=== PATIENT | female | born 1935 | race Caucasian/White ===

== ENCOUNTER 2018-09-12 20:53 | Inpatient (IN) | payer MEDICARE ==
[~2018-09-12] VITALS: Ht 157.5 cm; Wt 50.4 kg
--- OUTSIDE RECORDS SUMMARY | 2018-09-12 20:55 | XMS REPORT ---
Author Author [facility] Address Unknown Phone Unavailable Care Team Providers Care Cocktail Lounge Manager Name Role Phone Unavailable Unavailable Problems This patient has no known problems. Allergies, Adverse Reactions, Alerts This patient has no known allergies or adverse reactions. Medications This patient has no known medications. Encounters Start Date/Time End Date/Time Encounter Type Admission Type Attending Clinicians [facility] Care Department Encounter ID 2018-07-16 21:53:00 2018-07-16 21:53:00 Emergency E [facility] [id number]
--- OUTSIDE RECORDS SUMMARY | 2018-09-12 20:55 | XMS REPORT | Clinical Summary ---
Author Author [facility] Address Unknown Phone Unavailable Care Team Providers Care Supervisor General Name Role Phone Jair Dubon MD PCP Allergies Not on File Medications Not on file Active Problems Not on file Social History Date Tobacco Use Types Packs/Day Years Used Never Assessed Sex Assigned at Date Recorded Not on file Industry Job Start Date Occupation Not on file Not on file Not on file Travel End Travel History Travel Start No recent travel history available. Last Filed Vital Signs Not on file Plan of Treatment Health Maintenance Due Date Last Done Comments SHINGLES VACCINES (#1) 1985 65+ PNEUMOCOCCAL VACCINE 02/22/2000 (1 of 2 - PCV13) INFLUENZA VACCINE 10/11/2018 Results Not on fileafter 09/11/2017 Insurance Type Payer Benefit Subscriber ID Effective Phone Address Plan / Dates Group Commercial [employer] xxxxxxxxxx 2007-P M[employer]UAL resent Medicare MEDICARE MEDICARE xxxxxxxxxx 2000- [place], PART A AND Present [place] Advance Directives Patient has advance care planning documents on file. For more information, jennifer mccoy contact: Kody Radford [address] [place] [address]
[2018-09-12] MEDS ORDERED: SODIUM CHLORIDE 0.9% 1000ML 1,000 ML IV STA (21:00)
[2018-09-12] MEDS ORDERED: NAMENDA5 MG PO (21:03)
[2018-09-12] MEDS ORDERED: DONEPEZIL HCL10 MG PO (21:03)
[2018-09-12] MEDS ORDERED: LOSARTAN POTASS50 MG PO (21:03)
[2018-09-12] MEDS ORDERED: LOPRESSOR25 MG PO (21:03)
[2018-09-12] MEDS ORDERED: ONE DAILY FOR1 EACH PO (21:03)
[2018-09-12] MEDS ORDERED: PRAVASTATIN SOD40 MG PO (21:03)
[2018-09-12 21:28] LABS: BASOPHILS # (AUTO) 0.1 (0.0-0.1); BASOPHILS % 0.3 % (0.0-1.0); EOSINOPHILS # (AUTO) 0.1 (0.0-0.4); EOSINOPHILS % 0.7 % (0.0-6.0); HEMATOCRIT 39.5 % (34.2-44.1); HEMOGLOBIN 12.7 g/dL (12.0-16.0); LYMPHOCYTES # (AUTO) 1.3 (1.0-3.2); LYMPHOCYTES % 8.7 % (18.0-39.1); MEAN CORPUSCULAR HGB CONC 32.2 g/dL (31-35); MEAN CORPUSCULAR VOLUME 93.2 fL (81-99); MONOCYTES # (AUTO) 1.1 (0.2-0.8); MONOCYTES % 7.3 % (4.4-11.3); NEUTROPHILS # (AUTO) 12.1 (2.1-6.9); NEUTROPHILS % 82.6 % (38.7-80.0); PLATELET COUNT 374 x10e3/uL (140-360); RED BLOOD COUNT 4.24 x10e6/uL (3.6-5.1); RED CELL DISTRIBUTION WIDTH 14.1 % (11.7-14.4)
[2018-09-12 21:51] LABS: BILIRUBIN,URINE NEGATIVE (NEGATIVE); CLARITY,URINE CLEAR (CLEAR); COLOR,URINE YELLOW (YELLOW); KETONES,URINE NEGATIVE (NEGATIVE); LEUKOCYTE ESTERASE ,URINE NEGATIVE (NEGATIVE); NITRITE,URINE NEGATIVE (NEGATIVE); PROTEIN,URINE DIPSTICK TRACE (NEGATIVE); URINE UROBILINOGEN 0.2 mg/dL (0.2 - 1)
--- NOTE | 2018-09-12 21:53 | Diagnostic Imaging Report ---
EXAMINATION: CHEST SINGLE (PORTABLE) INDICATION: Elevated WBC COMPARISON: None FINDINGS: AP view TUBES and LINES: None. LUNGS: Lungs are hyper inflated. Bilateral peribronchial cuffing. Focal airspace opacity in the right upper lobe. PLEURA: No pleural effusion or pneumothorax. HEART AND MEDIASTINUM: The cardiomediastinal silhouette is unremarkable. There are atherosclerotic calcifications within the aorta. BONES AND SOFT TISSUES: No acute osseous lesion. Soft tissues are unremarkable. UPPER ABDOMEN: No free air under the diaphragm. IMPRESSION: Right upper lobe pneumonia. Signed by: Dr. Williams Anthony M.D. on 09/12/2018 9:50 PM
[2018-09-12 21:55] LABS: ALBUMIN 2.7 g/dL (3.5-5.0); ALBUMIN/GLOBULIN RATIO 0.6 (0.8-2.0); ANION GAP 17.3 mmol/L (8-16); CREATININE, SERUM 0.91 mg/dL (0.57-1.11); POTASSIUM 4.3 mmol/L (3.5-5.1)
[2018-09-12 22:01] LABS: CREATINE KINASE MB 5.6 ng/mL (0-5.0)
--- NOTE | 2018-09-12 22:09 | Diagnostic Imaging Report ---
History:AMS Comparison studies:None Technique: Axial images were obtained from the skull base to the vertex. Coronal and sagittal images reconstructed from the axial data. Intravenous contrast: None Dose modulation, iterative reconstruction, and/or weight based adjustment of the mA/kV was utilized to reduce the radiation dose to as low as reasonably achievable. Findings: Scalp/skull: No abnormalities. Extra-axial spaces: No masses. No fluid collections. Brain sulci: Severely prominent at the frontal temporal and parietal convexities. Ventricles: Moderate compensatory dilatation. Severe dilation of the left temporal horn. No hydrocephalus. Parenchyma: Few hypodensities in the supratentorial white matter are small vessel ischemic changes. No masses, hemorrhage, acute or chronic cortical vascular insults. Sellar/suprasellar region: No abnormalities. Craniocervical junction: Patent foramen magnum. No Chiari one malformation. Incidental findings: Atherosclerotic calcifications in the carotid siphons . Impression: No acute abnormalities. Chronic findings: 1. Severe cortical volume loss at the frontal, temporal and parietal convexities. 2. Mild supratentorial white matter small vessel ischemic changes. Signed by: DR Thaddeus Ly M.D. on 09/12/2018 10:06 PM
[2018-09-12 22:21] LABS: BACTERIA,URINE MANY /HPF; EPITHELIAL CELLS,URINE MODERATE /LPF; RBC,URINE 0-5 /HPF (0-5); WBC,URINE (MAN) 0-5 /HPF (0-5)
--- OUTSIDE RECORDS SUMMARY | 2018-09-12 23:42 | XMS REPORT ---
Author Author [facility] Address Unknown Phone Unavailable Care Team Providers Care Water Sponger Name Role Phone Margarita STOVER Unavailable Unavailable Problems This patient has no known problems. Allergies, Adverse Reactions, Alerts This patient has no known allergies or adverse reactions. Medications This patient has no known medications. Results Test Description Test Time Test Comments Text Results Atomic Results Result Comments CT BRAIN WO 2018-09-12 22:02:00 [facility] [address] [address] Patient Name: REGINALDO VIEIRA MR #: [id number] : 1935 Age/Sex: 83/F Req #: [id number] Adm Physician: Ordered by: GISELL STOVER MD Report #: [id number] Location: ER Room/Bed: Procedure: [id number] CT/CT BRAIN WO Exam Date: Exam Time: REPORT STATUS: Signed History:AMS Comparison studies:None Technique: Axial images were obtained from the skull base to the vertex. Coronal and sagittal images reconstructed from the axial data. Intravenous contrast: None Dose modulation, iterative reconstruction, and/or weight based adjustment of the mA/kV was utilized to reduce the radiation dose to as low as reasonably achievable. Findings: Scalp/skull: No abnormalities. Extra- axial spaces: No masses. No fluid collections. Brain sulci: Severely prominent at the frontal temporal and parietal convexities. Ventricles: Moderate compensatory dilatation. Severe dilation of the left temporal horn. No hydrocephalus. Parenchyma: Few hypodensities in the supratentorial white matter are small vessel ischemic changes. No masses, hemorrhage, acute or chronic cortical vascular insults. Sellar/suprasellar region: No abnormalities. Craniocervical junction: Patent foramen magnum. No Chiari one malformation. Incidental findings: Atherosclerotic calcifications in the carotid siphons . Impression: No acute abnormalities. Chronic findings: 1. Severe cortical volume loss at the frontal, temporal and parietal convexities. 2. Mild supratentorial white matter small vessel ischemic changes. Signed by: DR Thaddeus Ly M.D. on 09/12/2018 10:06 PM Dictated By: THADDEUS GARZA MD 05 Transcribed By: CELINE on 09/12/182205 COPY TO: GISELL STOVER MD CHEST SINGLE (PORTABLE) 2018-09-12 21:48:[address] [address] Patient Name: REGINALDO VIEIRA MR #: [id number] : 1935 Age/Sex: 83/F Req #: [id number] Adm Physician: Ordered by: GISELL STOVER MD Report #: [id number] Location: ER Room/Bed: Procedure: [id number] DX/CHEST SINGLE (PORTABLE) Exam Date: Exam Time: REPORT STATUS: Signed EXAMINATION: CHEST SINGLE (PORTABLE) INDICATION: Elevated WBC COMPARISON: None FINDINGS: AP view TUBES and LINES: None. LUNGS: Lungs are hyper inflated. Bilateral peribronchial cuffing. Focal airspace opacity in the right upper lobe. PLEURA: No pleural effusion or pneumothorax. HEART AND MEDIASTINUM: The cardiomediastinal silhouette is unremarkable. There are atherosclerotic calcifications within the aorta. BONES AND SOFT TISSUES: No acute osseous lesion. Soft tissues are unremarkable. UPPER ABDOMEN: No free air under the diaphragm. IMPRESSION: Right upper lobe pneumonia. Signed by: Dr. Vivek Elizabeth M.D. on 09/12/2018 9:50 PM Dictated By: VIVEK ELIZABETH MD 49 Transcribed By: CELINE on 09/12/182149 COPY TO: GISELL STOVER MD
[2018-09-12] MEDS: CEFTRIAXONE SOD 1 GRAM/0.9% SOD CHL 50ML BAG IV SCH (23:43)
[2018-09-12] MEDS ORDERED: CEFTRIAXONE SOD 1 GM/NS 50 ML 50 ML IV ONE (23:44)
[2018-09-12] MEDS ORDERED: METRONIDAZOLE 500MG/NS 100ML 100 ML IV ONE (23:44)
[2018-09-13] VITALS (10 sets, daily range): BP systolic 122–168; BP diastolic 57–84
[2018-09-13] MEDS: METRONIDAZOLE 500MG/NS 100ML 100 ML IV SCH ×2 (00:04→05:49)
--- NOTE | 2018-09-13 00:25 | NUR ---
Pt received from ER. Pt sleeping but reported to be A&O 1-2 with hx of dementia. Pt in no apparent distress. Pt on room air and tele w/ cont. pulse ox. All safety measures ensured, bed alarm on, and pt call jolley near. Pt encouraged to use call jolley for assistance.
[2018-09-13] MEDS: AZITHROMYCIN 500MG/SOD CHL 0.9% 250ML BAG IV SCH (01:43)
[2018-09-13] MEDS: SODIUM CHLORIDE 0.9% 1000ML 1,000 ML IV SCH ×2 (03:00→18:26)
[2018-09-13 06:34] LABS: CREATINE KINASE MB 4.9 ng/mL (0-5.0)
[2018-09-13 06:45] LABS: BASOPHILS # (AUTO) 0.1 (0.0-0.1); BASOPHILS % 0.5 % (0.0-1.0); EOSINOPHILS # (AUTO) 0.2 (0.0-0.4); EOSINOPHILS % 1.6 % (0.0-6.0); HEMATOCRIT 39.3 % (34.2-44.1); LYMPHOCYTES # (AUTO) 1.1 (1.0-3.2); LYMPHOCYTES % 10.3 % (18.0-39.1); MEAN CORPUSCULAR HGB CONC 31.8 g/dL (31-35); MEAN CORPUSCULAR VOLUME 94.5 fL (81-99); MONOCYTES # (AUTO) 0.9 (0.2-0.8); NEUTROPHILS # (AUTO) 8.7 (2.1-6.9); NEUTROPHILS % 79.1 % (38.7-80.0); PLATELET COUNT 307 x10e3/uL (140-360); RED BLOOD COUNT 4.16 x10e6/uL (3.6-5.1); RED CELL DISTRIBUTION WIDTH 14.3 % (11.7-14.4)
[2018-09-13 06:48] LABS: HEMOGLOBIN 12.5 g/dL (12.0-16.0)
[2018-09-13 06:53] LABS: ALANINE AMINOTRANSFERASE 35 IU/L (0-55); ALBUMIN 2.4 g/dL (3.5-5.0); ALBUMIN/GLOBULIN RATIO 0.5 (0.8-2.0); ALKALINE PHOSPHATASE 80 IU/L (40-150); ANION GAP 14.1 mmol/L (8-16); BLOOD UREA NITROGEN 23 mg/dL (7-26); BUN/CREATININE RATIO 31 (6-25); CALCIUM 11.1 mg/dL (8.4-10.2); CARBON DIOXIDE 26 mmol/L (22-29); CHLORIDE 108 mmol/L (98-107); CREATININE, SERUM 0.75 mg/dL (0.57-1.11); EST GLOMERULAR FILTRATION RATE > 60 ML/MIN (60-); GLUCOSE 102 mg/dL (74-118); POTASSIUM 4.1 mmol/L (3.5-5.1); SODIUM 144 mmol/L (136-145)
--- NOTE | 2018-09-13 07:04 | NUR ---
Bedside report walking rounds complete with day shift RN. Pt sleeping in bed and in no apparent distress. All safety measures ensured.
--- NOTE | 2018-09-13 07:20 | NUR ---
PATIENT IN BED RESTING WITH EYES CLOSED, NO RESPIRATORY DISTRESS OBSERVED. TELEMETRY BOX IN PLACE. BED IN LOWER POSITION, CALL LIGHT AT REACH. BED ALARM ACTIVATED.
[2018-09-13] MEDS ORDERED: ASPIRIN 81 MG CHEW TAB PO ONE (10:15)
[2018-09-13] MEDS ORDERED: ACETAMINOPHEN 325 MG TAB PO PRN (10:15)
[2018-09-13] MEDS ORDERED: HYDRALAZINE HCL 20 MG/ML VIAL IV PRN (10:15)
[2018-09-13] MEDS ORDERED: ONDANSETRON HCL INJ 2MG/ML 2ML 2 MG/ML VIAL IV PRN (10:15)
--- NOTE | 2018-09-13 10:29 | Diagnostic Imaging Report ---
EXAMINATION: CHEST SINGLE (PORTABLE) INDICATION: ^R/O PNA ^[id number] ^[id number] COMPARISON: 09/12/2018 FINDINGS: AP view TUBES and LINES: None. LUNGS: Lungs are well inflated. Bilateral upper lobe hazy opacities, right greater than left. PLEURA: No pleural effusion or pneumothorax. HEART AND MEDIASTINUM: The cardiomediastinal silhouette is unremarkable. BONES AND SOFT TISSUES: No acute osseous lesion. Soft tissues are unremarkable. UPPER ABDOMEN: No free air under the diaphragm. IMPRESSION: Bilateral upper lobe hazy opacities, right greater than left, concerning for pneumonia, unchanged from prior exam. Signed by: Dr. Favian Hooper MD on 09/13/2018 10:26 AM
--- NOTE | 2018-09-13 11:38 | NUR ---
BEDSIDE SWALLOWING TEST DONE. SPEECH THERAPIST RECOMMENDED PUREE DIET, FOOTWEAR SALES ASSOCIATE NOTIFIED AND NEW ORDER RECEIVED.
[2018-09-13] MEDS: GUAIFENESIN 200 MG/10 ML UDC PO SCH ×3 (12:30→23:55)
--- NOTE | 2018-09-13 14:39 | Consultation ---
DATE OF CONSULTATION: 09/13/2018 Pulmonary Critical Care Consultation HISTORY OF PRESENT ILLNESS: The patient has a history of dementia. She lives at home with her family, but has been cxfdx-ray-cvoej caretakers. Apparently, she went to Dr. Kelly's office yesterday and was found to have a urinary tract infection. She was subsequently sent to the ER. The ER expressed concern about pneumonia and started antibiotics. The patient does not have any cough for congestion. She is not having any change in her normal respiratory status. PAST SURGICAL HISTORY: 1. Status post cholecystectomy. 2. Status post hip surgery. PAST MEDICAL HISTORY: 1. Hypertension. 2. Dementia. SOCIAL HISTORY: The patient quit smoking 40 years ago. ALLERGIES: SHE HAS NO KNOWN DRUG ALLERGIES. FAMILY HISTORY: Noncontributory. REVIEW OF SYSTEMS: The patient has chronic dementia and confusion. She has no fever. She is not having any chest pain. She does not have cough. She has no abdominal pain. She has no nausea or vomiting. She has no leg edema. PHYSICAL EXAMINATION: VITAL SIGNS: The patient is afebrile. The blood pressure is 168/70 and the saturation is 98%. Pulse is 87. HEENT: Shows no facial swelling or erythema. The nasal mucosa is normal. The oropharynx is normal. LYMPHATIC: Shows no submandibular, cervical, or supraclavicular adenopathy. CARDIAC: Reveals a regular rate and rhythm with a normal S1 and S2. There are no murmurs or rubs. LUNGS: Auscultation of lungs reveals rhonchorous breath sounds bilaterally. There is no wheezing. ABDOMEN: Soft, nontender. There is no rebound or guarding. EXTREMITIES: There is no leg edema or calf tenderness. There is no cyanosis clubbing. SKIN: Shows no rashes. NEUROLOGIC: Shows the patient to be demented. She does not move spontaneously. LABORATORY DATA: BUN to creatinine ratio is normal. Electrolytes are normal. CBC is normal. RADIOGRAPHIC DATA: Some hazy infiltrates in the upper lobes raising a concern for pneumonia. IMPRESSION: 1. Community-acquired pneumonia. 2. Metabolic encephalopathy. 3. Chronic dementia. PLAN: 1. Antibiotics. 2. Physical therapy. 3. DVT prophylaxis. 4. Decubitus prophylaxis. MD SUSANA Gutierrez/JEN /[id number]
[2018-09-13] MEDS: FAMOTIDINE 20 MG TAB PO SCH (16:30)
[2018-09-13] MEDS: MEGESTROL ACETATE 40 MG TAB PO SCH (17:19)
[2018-09-13] MEDS: METOPROLOL TARTRATE 25 MG TAB PO SCH (17:19)
[2018-09-13] MEDS: MEMANTINE 10 MG TAB PO SCH (17:19)
--- NOTE | 2018-09-13 17:27 | NUR ---
PATIENT IN BED RESTING WITH NO RESPIRATORY DISTRESS. PACEMAKER SITE TO LEFT UPPER CHEST WITH RONEL INTACT. CALL LIGHT AT REACH. Addendum: 09/13/18 at 1728 by Amanda Powell RN WRONG PATIENT
--- NOTE | 2018-09-13 17:36 | NUR ---
PATIENT SITTING UP IN BED, ASSISTED WITH DINNER TRAY, NO SWALLOWING DIFFICULTY OBSERVED. CALL LIGHT AT EASY REACH.
[2018-09-13] MEDS: SIMVASTATIN 20 MG TAB PO SCH (21:45)
--- NOTE | 2018-09-13 22:00 | NUR ---
PATIENT IS ALERT AND SHOWS NO SIGNS OF DISTRESS. BED IS IN LOWEST POSITION AND LOCKED, BED ALARM IS ACTIVATED, SIDE RAILS ARE UP, CALL LIGHT WITHIN REACH, WILL CONTINUE TO MONITOR.
[2018-09-13] MEDS: CEFTRIAXONE SOD 1 GRAM/0.9% SOD CHL 50ML BAG IV SCH (23:44)
[2018-09-14] VITALS (8 sets, daily range): BP systolic 125–159; BP diastolic 60–85
[2018-09-14] MEDS: AZITHROMYCIN 500MG/SOD CHL 0.9% 250ML BAG IV SCH (00:30)
--- NOTE | 2018-09-14 03:30 | NUR ---
PATIENT WAS NONCOMPLIANT FOR 03:00 LAB DRAWS. TRIED TO GET PATIENT TO STOP MOVING ARM BUT CONTINUED TO MOVE OUT OF PLACE AND VOICED SHE WANTED TO SLEEP. WILL FOLLOW UP WITH PHLEBOTOMY AT 05:00 LAB DRAWS AND CONTINUE TO MONITOR SITUATION.
[2018-09-14] MEDS: GUAIFENESIN 200 MG/10 ML UDC PO SCH ×3 (06:00→17:51)
[2018-09-14 06:10] LABS: BILIRUBIN,DIRECT 0.2 mg/dL (0.0-0.5)
[2018-09-14] MEDS: SODIUM CHLORIDE 0.9% 1000ML 1,000 ML IV SCH ×2 (06:18→09:00)
[2018-09-14 06:37] LABS: CREATINE KINASE MB 2.3 ng/mL (0-5.0)
[2018-09-14 06:47] LABS: BASOPHILS # (AUTO) 0.1 (0.0-0.1); BASOPHILS % 0.6 % (0.0-1.0); EOSINOPHILS # (AUTO) 0.2 (0.0-0.4); EOSINOPHILS % 1.7 % (0.0-6.0); HEMATOCRIT 33.8 % (34.2-44.1); HEMOGLOBIN 10.8 g/dL (12.0-16.0); LYMPHOCYTES # (AUTO) 1.2 (1.0-3.2); LYMPHOCYTES % 10.1 % (18.0-39.1); MEAN CORPUSCULAR HEMOGLOBIN 29.9 pg (28-32); MEAN CORPUSCULAR VOLUME 93.6 fL (81-99); MONOCYTES # (AUTO) 0.7 (0.2-0.8); MONOCYTES % 5.7 % (4.4-11.3); NEUTROPHILS # (AUTO) 9.3 (2.1-6.9); NEUTROPHILS % 81.5 % (38.7-80.0); PLATELET COUNT 327 x10e3/uL (140-360); RED BLOOD COUNT 3.61 x10e6/uL (3.6-5.1)
[2018-09-14 06:54] LABS: ANION GAP 12.5 mmol/L (8-16); BLOOD UREA NITROGEN 17 mg/dL (7-26); BUN/CREATININE RATIO 27 (6-25); CARBON DIOXIDE 24 mmol/L (22-29); CHLORIDE 115 mmol/L (98-107); CREATININE, SERUM 0.63 mg/dL (0.57-1.11); EST GLOMERULAR FILTRATION RATE > 60 ML/MIN (60-); GLUCOSE 103 mg/dL (74-118); POTASSIUM 3.5 mmol/L (3.5-5.1); SODIUM 148 mmol/L (136-145)
[2018-09-14] MEDS: ALBUTEROL/IPRATROPIUM 3 ML NEB NEB SCH ×4 (07:00→23:22)
[2018-09-14 07:54] LABS: B-TYPE NATRIURETIC PEPTIDE2 215.8 pg/mL (0-100)
[2018-09-14] MEDS: MEGESTROL ACETATE 40 MG TAB PO SCH ×2 (11:21→17:31)
[2018-09-14] MEDS: DONEPEZIL HCL 5 MG TAB PO SCH (11:21)
[2018-09-14] MEDS: AMLODIPINE BESYLATE 10 MG TAB PO SCH (11:22)
[2018-09-14] MEDS: MEMANTINE 10 MG TAB PO SCH ×2 (11:22→17:31)
[2018-09-14] MEDS: LOSARTAN POTASSIUM 100 MG TAB PO SCH (11:23)
[2018-09-14] MEDS: METOPROLOL TARTRATE 25 MG TAB PO SCH ×2 (11:23→17:32)
[2018-09-14] MEDS: FAMOTIDINE 20 MG TAB PO SCH ×2 (11:28→17:09)
--- NOTE | 2018-09-14 15:48 | Progress Note ---
DATE: 09/14/2018 Pulmonary Critical Care Progress Note SUBJECTIVE: The patient has no fever. She has less congestion. Her mental status is abnormal, but is at her baseline. PHYSICAL EXAMINATION: VITAL SIGNS: The patient is afebrile. The blood pressure is 142/78, pulse is 93, and the saturation is 96%. HEENT: Shows no facial swelling or erythema. CARDIAC: Reveals regular rate and rhythm with normal S1, S2. There are no murmurs or rubs heard. LUNGS: Auscultation of lungs reveals rhonchorous breath sounds bilaterally. There is no wheezing. ABDOMEN: Soft, nontender. There is no rebound or guarding. EXTREMITIES: Show no leg edema or calf tenderness. IMPRESSION: 1. Community-acquired pneumonia. 2. Metabolic encephalopathy. 3. Chronic dementia with poor mental status at baseline. 4. Hypertension. PLAN: 1. Repeat x-ray. 2. Change to oral antibiotics. 3. Continue enteral feedings. 4. The patient and family desired DNR status. 5. Possible discharge tomorrow. MD SUSANA Gutierrez/JEN /[id number]
--- NOTE | 2018-09-14 16:07 | NUR ---
Nutrition Intervention Note RD Recommendation(s) for Physician: The patient meets criteria for MODERATE protein-calorie malnutrition. -Continue cardiac diet as ordered; diet texture per GEOPHYSICAL OPERATOR rec -Rec Ensure Enlive BID to increase protein-calorie intake -Continue Megace to increase appetite Plan of Care: RD following, monitoring for tolerance and adequacy, ONS rec Nutrition reason for involvement: consult RD Assessment 09/14 83yo F, who was admitted for PNA. Visited pt in the room. Pt with hx of dementia, unable to provide any info. She lives at home with her family, but has been with hxopb-ntn-ferda caretakers. Per family on bedside, pt ate well today with ~40% lunch intake. Tolerating current diet texture ordered. No complains of nausea or vomiting. Pt usually drinks 1-2 Ensure/ Premium protein shakes at home. Per daughter, pt might have lost ~5lbs in a year. Her UBW is between 105-110lbs. Pt has some moderate muscle and fat loss upon NFPA. Megace has been ordered to increase appetite. Will continue to monitor and follow. Principal Problems/Diagnoses: 1. Community-acquired pneumonia. 2. Metabolic encephalopathy. 3. Chronic dementia. PMH: Dementia, HTN GI: abdomen flat, soft, non-tender, LBM 09/14 Skin: no pressure wound noted Labs: (09/14) Na 148 H, AST 36 H Meds: pepcid, megace, abx Ht: 62in Wt: 105lb BMI: 19.3kg/m2 IBW: 110lb +/- 10% Malnutrition Evaluation (09/14/2018) The patient meets criteria for MODERATE protein-calorie malnutrition. Energy intake: <75% of estimated energy requirements for >3 months Weight loss: 10% weight loss in a year - not meeting criteria Fat loss: Moderate clavicle protrusion Muscle loss: Moderate temporal depression, some protrusion of acromion process Supporting Evidence: Fluid accumulation: None Functional Status: no changes Nutrition Prescription (Diet Order): cardiac diet (pureed) Estimated Nutritional Needs: Calories: 1200 1680kcal(25-35kcal/kg/d) Weight used: CBW Protein: 48 72g(1-1.5g/kg/d) Weight used: CBW Diet Adequacy: Not meeting calorie needs, Not meeting protein needs Diet Education Needs Assessment: Diet education not indicated. Nutrition Care Level: Mod Nutrition Diagnosis: Moderate malnutrition related to inadequate energy intake as evidenced by <75% of estimated energy requirements for >3 months and moderate muscle/ fat loss. Goal: Patient will meet 75-100% of estimated needs by follow up Progress: Progressing Interventions: Modified diet, Commercial beverage, Recommended Modifications, Collaboration with other providers Monitoring/Evaluation: Total energy intake, Total protein intake, Modified diet, Liquid supplement, Weight change Signed: Beth Richardson MS, RD, LD
[2018-09-14] MEDS: SIMVASTATIN 20 MG TAB PO SCH (21:40)
[2018-09-15] VITALS (8 sets, daily range): BP systolic 131–183; BP diastolic 71–90
[2018-09-15] MEDS: CEFTRIAXONE SOD 1 GRAM/0.9% SOD CHL 50ML BAG IV SCH ×2 (00:05→23:30)
[2018-09-15] MEDS: AZITHROMYCIN 500MG/SOD CHL 0.9% 250ML BAG IV SCH ×2 (00:40→22:30)
[2018-09-15] MEDS: GUAIFENESIN 200 MG/10 ML UDC PO SCH ×5 (06:05→18:36)
[2018-09-15 06:12] LABS: BASOPHILS % 0.4 % (0.0-1.0); EOSINOPHILS # (AUTO) 0.2 (0.0-0.4); EOSINOPHILS % 2.3 % (0.0-6.0); LYMPHOCYTES # (AUTO) 1.6 (1.0-3.2); MEAN CORPUSCULAR HEMOGLOBIN 29.9 pg (28-32); MEAN CORPUSCULAR HGB CONC 32.4 g/dL (31-35); MEAN CORPUSCULAR VOLUME 92.4 fL (81-99); MONOCYTES # (AUTO) 0.6 (0.2-0.8); MONOCYTES % 5.7 % (4.4-11.3); NEUTROPHILS # (AUTO) 7.9 (2.1-6.9); NEUTROPHILS % 75.9 % (38.7-80.0); PLATELET COUNT 356 x10e3/uL (140-360); RED BLOOD COUNT 3.68 x10e6/uL (3.6-5.1); RED CELL DISTRIBUTION WIDTH 14.3 % (11.7-14.4)
[2018-09-15 06:35] LABS: ANION GAP 12.5 mmol/L (8-16); BLOOD UREA NITROGEN 15 mg/dL (7-26); BUN/CREATININE RATIO 23 (6-25); CALCIUM 10.2 mg/dL (8.4-10.2); CARBON DIOXIDE 26 mmol/L (22-29); CHLORIDE 112 mmol/L (98-107); CREATINE KINASE 232 IU/L (29-168); CREATININE, SERUM 0.65 mg/dL (0.57-1.11); EST GLOMERULAR FILTRATION RATE > 60 ML/MIN (60-); GLUCOSE 107 mg/dL (74-118); MAGNESIUM 1.8 MG/DL (1.3-2.1); POTASSIUM 3.5 mmol/L (3.5-5.1); SODIUM 147 mmol/L (136-145)
[2018-09-15] MEDS: ALBUTEROL/IPRATROPIUM 3 ML NEB NEB SCH ×2 (07:00→13:00)
[2018-09-15] MEDS: FAMOTIDINE 20 MG TAB PO SCH ×2 (08:37→18:35)
[2018-09-15] MEDS: DONEPEZIL HCL 5 MG TAB PO SCH (08:46)
[2018-09-15] MEDS: METOPROLOL TARTRATE 25 MG TAB PO SCH ×2 (08:47→18:36)
[2018-09-15] MEDS: MEGESTROL ACETATE 40 MG TAB PO SCH ×2 (08:47→18:36)
[2018-09-15] MEDS: AMLODIPINE BESYLATE 10 MG TAB PO SCH (08:48)
[2018-09-15] MEDS: MEMANTINE 10 MG TAB PO SCH ×2 (08:48→18:36)
[2018-09-15] MEDS: LOSARTAN POTASSIUM 100 MG TAB PO SCH ×2 (08:48→08:50)
--- NOTE | 2018-09-15 11:36 | Progress Note ---
DATE: 09/15/2018 Pulmonary Critical Care Progress Note SUBJECTIVE: The patient still has some confusion. She appears to be at her baseline according to the family. She is afebrile. PHYSICAL EXAMINATION: VITAL SIGNS: The blood pressure is mildly elevated at 183/90. HEENT: Shows no facial swelling or erythema. LYMPHATIC: Shows no submandibular, cervical, or supraclavicular adenopathy. CARDIAC: Reveals a regular rate and rhythm with normal S1 and S2. There are no murmurs or rubs heard. LUNGS: Auscultation of lungs reveals rhonchorous breath sounds bilaterally. There is no wheezing. ABDOMEN: Soft, nontender. There is no rebound or guarding. EXTREMITIES: Show no leg edema or calf tenderness. IMPRESSION: 1. Community-acquired pneumonia. 2. Metabolic encephalopathy. 3. Chronic dementia. 4. Hypertension. PLAN: 1. Change to oral antibiotics. 2. Continue enteral feedings. The patient is DNR status. 3. The patient appears to be at her baseline. 4. Possible discharge tomorrow. Fransico Shankar MD [facility]/JNE /[id number]
--- NOTE | 2018-09-15 12:49 | NUR ---
ORDER RECEIVED FOR HOME PHYSICAL THERAPY. MET W THE PT AND DTR / JOLIE AT THE BEDSIDE. DAUGHTER EXPRESSED SHE WAS INTERESTED IN HOSPICE. INFORMED JOLIE ORDOÑEZ HAD NOT RECEIVED AN ORDER FOR HOSPICE, BUT SMITA CAN PROVIDE HER A LIST OF HOSPICE. STATES SHE WAS TOLD HER MOTHER WOULD DC HOME TODAY. PT IS [facility]OS [facility] @ [phone]. STATES HER MOTHER HAS PROVIDERS 7AM - 8PM DAILY. DTR WANTED TO KNOW WHAT THE DOC RECOMMENDS. CALL WAS PLACED TO [place] W DR. SHARMA. ANI STATES SHE DIDN'T FEEL THE PT WAS HOSPICE APPROPRIATE; DEMENTIA ONLY. INFORMED HER THE DTR WAS ASKING. ANI REQUESTED TO REVIEW THE RECORD FIRST AND WOULD SPEAK W THE FAMILY TOMORROW. DTR INQUIRED WHY WAS THE PT WAITING. SMITA CALLED ANI BACK. STATES SHE WANTED THE FINAL CULTURE TO DETERMINE PT'S NEEDS AT HI. DTR AGREED TO STAY TIL THE AM. ANI AGREED TO CALL DTR EARLY IN THE MORNING W ROUNDS. SMITA WROTE DTR'S # ON THE DRY ERASE BOARD.
--- NOTE | 2018-09-15 19:00 | NUR ---
Pt visited in room during nursing rounds. Patient alert and oriented x1. Pt is aphasic but able to nod head in response to questions. Patient is bedridden and being turned Q2hrs. Bed alarm active. Pt is DNR. Call jolley within reach. Will monitor pt closely.
--- NOTE | 2018-09-15 21:00 | NUR ---
Report given to incoming night nurse, Lit. Care for patient will be turned over to Lit gaines.
--- NOTE | 2018-09-15 21:30 | NUR ---
Completed bedside report with nurse. Pt nonverbal. Pt lying in bed HOB 45 degrees. No s/s of pain at this time. Bed alarm on. Will continue to monitor.
[2018-09-15] MEDS: SIMVASTATIN 20 MG TAB PO SCH (21:45)
[2018-09-16] VITALS: BP 103/51
[2018-09-16 03:40] LABS: BASOPHILS % 0.4 % (0.0-1.0); EOSINOPHILS # (AUTO) 0.3 (0.0-0.4); HEMOGLOBIN 10.4 g/dL (12.0-16.0); LYMPHOCYTES # (AUTO) 2.3 (1.0-3.2); LYMPHOCYTES % 22.1 % (18.0-39.1); MEAN CORPUSCULAR HEMOGLOBIN 30.2 pg (28-32); MEAN CORPUSCULAR HGB CONC 32.5 g/dL (31-35); MONOCYTES # (AUTO) 0.7 (0.2-0.8); MONOCYTES % 6.8 % (4.4-11.3); NEUTROPHILS # (AUTO) 6.9 (2.1-6.9); NEUTROPHILS % 67.2 % (38.7-80.0); PLATELET COUNT 355 x10e3/uL (140-360); RED BLOOD COUNT 3.44 x10e6/uL (3.6-5.1); RED CELL DISTRIBUTION WIDTH 14.6 % (11.7-14.4)
[2018-09-16 03:53] LABS: ANION GAP 12.8 mmol/L (8-16); BLOOD UREA NITROGEN 15 mg/dL (7-26); BUN/CREATININE RATIO 23 (6-25); CALCIUM 10.2 mg/dL (8.4-10.2); CARBON DIOXIDE 26 mmol/L (22-29); CHLORIDE 109 mmol/L (98-107); CREATINE KINASE 201 IU/L (29-168); CREATININE, SERUM 0.65 mg/dL (0.57-1.11); EST GLOMERULAR FILTRATION RATE > 60 ML/MIN (60-); GLUCOSE 102 mg/dL (74-118); POTASSIUM 3.8 mmol/L (3.5-5.1); SODIUM 144 mmol/L (136-145)
[2018-09-16 04:00] VITALS: BP 146/65
[2018-09-16] MEDS ORDERED: ZITHROMAX500 MG PO (05:23)
[2018-09-16] MEDS ORDERED: MEGESTROL ACETA40 MG PO (05:23)
[2018-09-16] MEDS ORDERED: GUAIFENESI100 MG/5 M PO (05:23)
[2018-09-16] MEDS ORDERED: CEFDINIR300 MG PO (05:23)
[2018-09-16] MEDS ORDERED: NORVASC10 MG PO (05:23)
[2018-09-16] MEDS: GUAIFENESIN 200 MG/10 ML UDC PO SCH ×2 (06:00)
[2018-09-16] MEDS: ALBUTEROL/IPRATROPIUM 3 ML NEB NEB SCH (06:56)
[2018-09-16] MEDS: FAMOTIDINE 20 MG TAB PO SCH (07:30)
[2018-09-16 08:00] VITALS: BP 140/62
[2018-09-16 08:06] VITALS: BP 185/81
--- NOTE | 2018-09-16 09:40 | NUR ---
SMITA SPOKE TO PATIENT DAUGHTER AND POA JOLIE VIEIRA [phone] WITH BEDSIDE KERRY SR REGARDING RESUMPTION OF HOME HEALTH SERVICES. JOLIE GAVE TELEPHONE CONSENT TO RESUME HOME HEALTH SERVICES WITH [employer]. CLINICAL PENDING FAX ONCE [employer] GIVES WORKING FAX NUMBER [employer] (P) [phone] (F) PENDING Addendum: 09/16/18 at 1020 by Mikala Grace CM FAX: [phone]
[2018-09-16 09:46] VITALS: BP 185/81
--- NOTE | 2018-09-16 10:19 | NUR ---
FAX: [phone]
--- NOTE | 2018-09-16 10:20 | NUR ---
DISCHARGE DISPOSITION PATIENT DISCHARGING HOME WITH RESUMPTION OF HOME HEALTH SERVICES AND INITIATE ST SERVICES FROM: [facility] (P) [phone] (F) [phone]
[2018-09-16 11:00] VITALS: BP 128/61
[2018-09-16] MEDS ORDERED: ONDANSETRON HCL 4 MG ORAL DISINTEGRATING TAB PO PRN (11:30)
--- NOTE | 2018-09-16 12:00 | NUR ---
Patient discharged home with home health.
--- NOTE | 2018-09-17 14:56 | Discharge Summary ---
ADMISSION DIAGNOSES: Right upper lobe pneumonia present on admission, hypertension, hyperlipidemia, dementia, poor p.o. intake, rhabdomyolysis, transaminitis. DISCHARGE DIAGNOSES: Right upper lobe pneumonia present on admission, hypertension, hyperlipidemia, dementia, poor p.o. intake, rhabdomyolysis, transaminitis, rule out urinary tract infection, rule out bacteremia, rule out cerebrovascular accident. MEDICAL HISTORY: The patient has a history of hypertension, hyperlipidemia, and dementia. SURGICAL HISTORY: Cholecystectomy, hip surgery. FAMILY HISTORY: Noncontributory. SOCIAL HISTORY: The patient admits to tobacco use, but quit in her 30s. HOSPITAL COURSE: An 83-year-old female sent from Dr. Kelly's office for bacteremia per son's report. They deny elevated WBC at the PCP's office. They deny cough, diarrhea, fever and dysuria complaints. According to the son, her AMS is slowly increasing due to her dementia. On admission, her WBC was 14.66. The patient was started on Zithromax, Rocephin, nebs, Mucinex. Pulmonary was consulted. Chest x-ray showed right upper lobe pneumonia. CT of the brain showed no acute abnormalities. Repeat chest x-ray showed bilateral upper lobe hazy opacities, right greater than left, concerning for pneumonia. Blood cultures were negative. Urine culture was negative. The patient will be discharged home with new prescription for Norvasc, megace, Omnicef, Zithromax, and Mucinex. She will follow up with primary care in 1-2 weeks and home health was arranged with physical therapy. The patient lives at home and has providers most of the day. Vital signs stable. The patient is afebrile. The patient's daughter understands discharge instructions and agrees to plan. Dictated by Estella Arriaza NP MD MARYBETH Haq/JEN /[id number]
--- NOTE | 2018-09-20 08:23 | Diagnostic Imaging Report ---
Examination: Single AP view of the chest. COMPARISON: 09/13/2018, images are only now submitted for interpretation on 09/20/2018 INDICATION: Pneumonia DISCUSSION: The lungs remain well-inflated. Unchanged right upper lobe patchy consolidation. Left upper lobe opacities described on the comparison are less conspicuous on the current study. No pleural effusion or pneumothorax. Stable cardiomediastinal contour with atherosclerotic calcification of the thoracic aorta. No acute osseous abnormality. Atherosclerotic vascular calcifications. Round peripherally calcified structure in the left upper quadrant may represent a splenic artery aneurysm. IMPRESSION: Right upper lobe pneumonia without significant interval change relative to 09/13/2018. Signed by: Dr. Valente Mei M.D. on 09/20/2018 8:19 AM
== END 2018-09-16 11:51 | disposition home health service (06) | DRG 193 ==
LOC: ER 20:53 → ERHOLD 23:39 → MED/SURG3 09-13 00:54 → OBSVTOIN 09-14 09:34
PROVIDERS: ADMIT Internal Medicine; ATTEND Internal Medicine
DX: J18.1 Lobar pneumonia, unspecified organism (principal); G93.41 Metabolic encephalopathy; M62.82 Rhabdomyolysis; F03.91 Unspecified dementia, unspecified severity, with behavioral disturbance; E78.5 Hyperlipidemia, unspecified; R74.0 Nonspecific elevation of levels of transaminase and lactic acid dehydrogenase [LDH]; I10 Essential (primary) hypertension
CPT/HCPCS: 36415; 70450; 71045; 80048; 80053; 80076; 81001; 82140; 82306; 82550; 82553; 83605; 83690; 83735; 83880; 83970; 84484; 85025; 87040; 87086; 92522; 93005; 94640; 97139; 99284; G0378; J0456; J0696; J7030